=== PATIENT | female | born 1950 | race Two or more races ===

== ENCOUNTER 2021-11-02 05:03 | Emergency (ER) | payer MEDICAID ==
[~2021-11-02] VITALS: Ht 165.1 cm; Wt 49.0 kg
[2021-11-02 06:03] LABS: BASOPHILS % 0.6 % (0.0-2.0); EOSINOPHILS % 0.1 % (0.0-5.0); HEMATOCRIT. 39.5 % (36.0-48.0); HEMOGLOBIN. 13.5 g/dL (12.0-16.0); LYMPHOCYTES % 11.2 % (20.0-50.0); MEAN CORPUSCULAR HEMOGLOBIN 31.9 pg (28.0-32.0); MEAN CORPUSCULAR VOLUME 93.7 fL (81.0-99.0); MONOCYTES % 8.5 % (2.0-8.0); NEUTROPHILS % 79.6 % (40.0-76.0); PLATELET 306 x1000/uL (130-400); RED BLOOD CELL COUNT 4.22 mill/uL (4.2-5.4); RED CELL DISTRIBUTION WIDTH 13.9 % (11.6-14.6)
[2021-11-02] MEDS ORDERED: KETOROLAC 30MG/ML VIAL IV ONE (06:15)
[2021-11-02 06:17] LABS: CHLORIDE 99 mEq/L (98-107)
[2021-11-02] MEDS ORDERED: MORPHINE SULFATE 4 MG/ML CPJ (NOT FOR IM USE) IV ONE (06:45)
[2021-11-02 08:00] VITALS: BP_DIAS 74
[2021-11-02] MEDS ORDERED: IBUP-2028 PO (09:00)
[2021-11-02] MEDS ORDERED: T3 PO (09:00)
[2021-11-02 09:30] VITALS: BP_SYST 136
== END 2021-11-02 10:42 | disposition home or self-care (01) ==
LOC: ER 05:03 → CANBEDREQ 19:13
DX: S52.022A Displaced fracture of olecranon process without intraarticular extension of left ulna, initial encounter for closed fracture (principal); I10 Essential (primary) hypertension; R42 Dizziness and giddiness; W01.0XXA Fall on same level from slipping, tripping and stumbling without subsequent striking against object, initial encounter; Y93.89 Activity, other specified; Y92.018 Other place in single-family (private) house as the place of occurrence of the external cause
CPT/HCPCS: 29105; 36415; 70450; 71045; 73030; 73060; 73080; 80053; 83880; 84484; 85025; 93005; 96374; 99285; J1885; A4565